=== PATIENT | female | born 1980 | race Caucasian/White ===

== ENCOUNTER 2016-10-26 17:08 | Emergency (ER) | payer OTHER ==
[~2016-10-26] VITALS: Wt 77.5 kg
[2016-10-26] MEDS ORDERED: FLUORESCEIN STRIP LEFT EYE ONE (19:30)
[2016-10-26] MEDS ORDERED: TETRACAINE 0.5% 4 ML OPH LEFT EYE ONE (19:30)
[2016-10-26] MEDS ORDERED: CLIN-73 PO (19:45)
[2016-10-26] MEDS ORDERED: CPR3OO3.5 LEFT EYE (19:45)
--- NOTE | 2016-10-26 19:58 | ERD ---
ER Documentation Chief Complaint Date/Time DATE: 10/26/16 TIME: 19:51 Chief Complaint LEFT EYE SWELLING/PAIN/BLURRY VISION CLEAR DISCHARGE SINCE AM HPI This is a 35-year-old female presents to the ER with left eye pain that started this morning. Patient is a contact user and states that she does not change her contacts often. Patient also sleeps in contacts. This morning she noticed that her eye was hurting, it was red and there was a lot of watering from it. Patient does admit to decreased and blurry vision. She denies seeing any halos , floaters, flashes of light. She denies any photophobia. Patient denies any foreign bodies in the eye. She denies any fevers or chills. ROS 12 point review of systems was done, all negative except per HPI. Medications Home Meds Active Scripts Clindamycin Hcl* (Clindamycin Hcl*) 300 Mg Capsule, 300 MG PO TID for 7 Days, CAP Prov:RANDOLPH,LUCAS C 10/26/16 Ciprofloxacin Opht* (Ciloxan*) 0.3%-3.5 Opht Oint, 1 APPLIC LEFT EYE TID for 7 Days, EA Prov:RANDOLPH,LUCAS C 10/26/16 Allergies Allergies: Coded Allergies: No Known Allergy (Verified Allergy, Unknown, 01/09/07) PMhx/Soc Medical and Surgical Hx: pt denies Medical Hx, pt denies Surgical Hx Hx Alcohol Use: No Hx Substance Use: No Hx Tobacco Use: No Smoking Status: Never smoker Physical Exam Vitals Vital Signs Date Time Temp Pulse Resp B/P Pulse Ox O2 Delivery O2 Flow Rate FiO2 10/26/16 17:18 98.8 90 18 139/77 95 Physical Exam GENERAL: The patient is well developed and appropriate for usual state of health , in no apparent distress. HEENT: Atraumatic. Left conjunctiva is injected, no discharge is seen. PERRLA , no hypopyon, no chemosis. Extraocular movements are intact and nonpainful. There is some erythema of bilateral eyelids. CHEST: Clear to auscultation bilaterally. There are no rales, wheezes or rhonchi. HEART: Regular rate and rhythm. No murmurs, clicks, rubs or gallops. NEURO: Alert and oriented. SKIN: There is no apparent rash or petechia. The skin is warm and dry. Results 24 hrs Current Medications Medications (Trade) Dose Ordered Sig/Elvin Route PRN Reason Start Time Stop Time Status Last Admin Dose Admin Tetracaine HCl (Tetracaine 0.5% Steri-Unit Gemma) 1 drop ONCE ONCE LEFT EYE 10/26/16 19:30 10/26/16 19:31 DC Fluorescein Sodium (Lqihl-[id number]) 1 strip ONCE ONCE LEFT EYE 10/26/16 19:30 10/26/16 19:31 DC Procedures/MDM Differential diagnosis includes but is not limited to subconjunctival hemorrhage , bacterial conjunctivitis, viral conjunctivitis, allergic conjunctivitis, orbital cellulitis, preseptal cellulitis, hyphema, corneal abrasion, keratitis, uveitis, angle-closure glaucoma, retinal detachment, ruptured globe, retrobulbar hematoma. Patient's eye was examined using a fluorescein staining there was an abrasion to patient's conjunctiva. Patient's conjunctiva is injected and she does have eyelid redness and slight swelling. Because patient is a contact user and does not use contacts adequately she will be treated with ophthalmologic ciprofloxacin and clindamycin for any potential preseptal cellulitis. Suspicion for orbital cellulitis is low. She does not have any chemosis, diplopia and she does not have painful extraocular movements. Suspicion for acute angle closure glaucoma is low. Patient does not have any risk factors for acute angle-closure glaucoma and she is not complaining of seeing halos around lights. Her pupils are normal. Suspicion for keratitis is low. There is no evidence of hypo-counts. I doubt uveitis. Suspicion for ruptured globe or retinal detachment is low. Patient was told to urgently follow up with [facility] tomorrow, she was given the day off to do this. Patient is to follow-up with her primary care doctor within 1-2 days return to ER sooner if symptoms worsen. My medical decision making was shared with the patient she understands and agrees with plan. I discussed his case with Dr. Sharp and he agrees with my medical decision making. Departure Diagnosis: Primary Impression: Corneal abrasion due to contact lens Condition: Stable Patient Instructions: Corneal Abrasion Referrals: [facility] Hours: Mon - Sun 9:00 AM - 5:00 PM Additional Instructions: Call your primary care doctor TOMORROW for an appointment during the next 1-2 days.See the doctor sooner or return here if your condition worsens before your appointment time. PLEASE GO TO OPTHALMOLOGIST TOMORROW LUCAS DICKSON Oct 26, 2016 19:58
== END 2016-10-26 20:03 | disposition home or self-care (01) ==
LOC: FTE 17:08
DX: S05.02XA Injury of conjunctiva and corneal abrasion without foreign body, left eye, initial encounter (principal); X58.XXXA Exposure to other specified factors, initial encounter; Y92.9 Unspecified place or not applicable
CPT/HCPCS: Z7502; Z7610; 99284